=== PATIENT | male | born 1960 | race American Indian/Alaskan Native ===

== ENCOUNTER 2018-10-27 08:34 | Emergency (ER) | payer OTHER ==
[2018-10-27 08:49] VITALS: BP 152/110
[2018-10-27] MEDS ORDERED: BOOSTRIX IM ONE (10:17)
--- NOTE | 2018-10-27 10:17 | Emergency Department Report ---
ED General Adult HPI - General Chief complaint: Wound/Laceration Stated complaint: LFT FOREARM INJURY/PAIN Time Seen by Provider: 10/27/18 09:49 Source: family Mode of arrival: Ambulatory Limitations: No Limitations - History of Present Illness Initial comments: Patient presents to the emergency department with a chief complaint of a laceration to his left elbow. Patient states he was cut by a piece of metal at work. Patient denies hitting his head or any other trauma. Last tetanus shot was 9 years ago -: Sudden Location: upper extremity Radiation: non-radiation Severity scale (0 -10): 1 Quality: aching Consistency: constant Improves with: none Worsens with: none Associated Symptoms: denies other symptoms Treatments Prior to Arrival: none - Related Data Previous Rx's Medication Instructions Recorded Last Taken Type Amoxicillin [Trimox CAP] 500 mg PO Q8H #40 capsule 01/09/14 Unknown Rx Fluticasone Propionate [Flonase] 2 sprays NS QDAY #1 spray 01/09/14 Unknown Rx Loratadine [Claritin] 10 mg PO DAILY #30 tablet 01/09/14 Unknown Rx Promethazine /Codeine 5 ml PO Q6H PRN #120 udc 01/09/14 Unknown Rx [Phenergan/Codeine 6.25-10 mg/5 ml] predniSONE [Deltasone] 50 mg PO QDAY #5 tab 01/09/14 Unknown Rx DOXYCYCLINE Hyclate [Vibramycin 100 mg PO Q12HR #28 capsule 10/13/15 Unknown Rx CAP] Ibuprofen [Motrin 600 MG tab] 600 mg PO Q8H PRN #30 tablet 10/13/15 Unknown Rx Ibuprofen [Motrin] 800 mg PO Q8HR PRN #30 tablet 10/27/18 Unknown Rx Allergies Allergy/AdvReac Type Severity Reaction Status Date / Time No Known Allergies Allergy Verified 10/13/15 07:21 ED Review of Systems ROS: Stated complaint: LFT FOREARM INJURY/PAIN Other details as noted in HPI Constitutional: denies: chills, fever Eyes: denies: eye pain, eye discharge, vision change ENT: denies: ear pain, throat pain Respiratory: denies: cough, shortness of breath, wheezing Cardiovascular: denies: chest pain, palpitations Endocrine: no symptoms reported Gastrointestinal: denies: abdominal pain, nausea, diarrhea Genitourinary: denies: urgency, dysuria Musculoskeletal: denies: back pain, joint swelling, arthralgia Skin: denies: rash, lesions Neurological: denies: headache, weakness, paresthesias Psychiatric: denies: anxiety, depression Hematological/Lymphatic: denies: easy bleeding, easy bruising ED Past Medical Hx - Past Medical History Previous Medical History?: Yes Hx Hypertension: No Hx Diabetes: No Hx GERD: Yes - Surgical History Past Surgical History?: Yes Additional Surgical History: Right shoulder surg. Right foot surg - Social History Smoking Status: Current Every Day Smoker Substance Use Type: None - Medications Home Medications: Home Medications Medication Instructions Recorded Confirmed Last Taken Type Amoxicillin [Trimox CAP] 500 mg PO Q8H #40 capsule 01/09/14 Unknown Rx Fluticasone Propionate [Flonase] 2 sprays NS QDAY #1 spray 01/09/14 Unknown Rx Loratadine [Claritin] 10 mg PO DAILY #30 tablet 01/09/14 Unknown Rx Promethazine /Codeine 5 ml PO Q6H PRN #120 udc 01/09/14 Unknown Rx [Phenergan/Codeine 6.25-10 mg/5 ml] predniSONE [Deltasone] 50 mg PO QDAY #5 tab 01/09/14 Unknown Rx DOXYCYCLINE Hyclate [Vibramycin 100 mg PO Q12HR #28 capsule 10/13/15 Unknown Rx CAP] Ibuprofen [Motrin 600 MG tab] 600 mg PO Q8H PRN #30 tablet 10/13/15 Unknown Rx Ibuprofen [Motrin] 800 mg PO Q8HR PRN #30 tablet 10/27/18 Unknown Rx ED Physical Exam - General Limitations: No Limitations General appearance: alert, in no apparent distress - Head Head exam: Present: atraumatic, normocephalic - Eye Eye exam: Present: normal appearance - ENT ENT exam: Present: mucous membranes moist - Neck Neck exam: Present: normal inspection - Respiratory Respiratory exam: Present: normal lung sounds bilaterally. Absent: respiratory distress - Cardiovascular Cardiovascular Exam: Present: regular rate, normal rhythm. Absent: systolic murmur, diastolic murmur, rubs, gallop - Extremities Exam Extremities exam: Present: other (4cm laceration to lateral aspect of the left elbow) - Back Exam Back exam: Present: normal inspection - Neurological Exam Neurological exam: Present: alert, oriented X3 - Psychiatric Psychiatric exam: Present: normal affect, normal mood - Skin Skin exam: Present: warm, dry, normal color. Absent: rash ED Course Vital Signs 10/27/18 08:46 Temperature 97.5 F L Pulse Rate 84 Respiratory 16 Rate Blood Pressure 152/110 O2 Sat by Pulse 96 Oximetry - Laceration /Wound Repair Left Arm Wound Location: upper extremity Wound Length (cm): 4 Wound's Depth, Shape: superficial Wound Explored: clean Betadine Prep?: Yes Anesthesia: 1% Lidocaine Volume Anesthetic (ccs): 4 Wound Repaired With: sutures Suture Size/Type: 3:0 Number of Sutures: 4 Layer Closure?: No Sterile Dressing Applied?: Yes ED Medical Decision Making - Medical Decision Making discussed results with patient Critical care attestation.: If time is entered above; I have spent that time in minutes in the direct care of this critically ill patient, excluding procedure time. ED Disposition Clinical Impression: Laceration Disposition: DC-01 TO HOME OR SELFCARE Is pt being admited?: No Does the pt Need Aspirin: No Condition: Stable Instructions: Laceration (ED), Suture Care (ED) Additional Instructions: return if worse Referrals: PRIMARY CARE,MD [Primary Care Provider] - 3-5 Days [facility] [Provider Group] - 3-5 Days [facility] [Provider Group] - 3-5 Days Forms: Work/School Release Form(ED) Time of Disposition: 11:48
[2018-10-27] MEDS ORDERED: XYLOCAINE 1% 20 mL INFILTRATI ONE (10:32)
[2018-10-27] MEDS ORDERED: IBUPROFEN PO ONE (11:33)
== END 2018-10-27 11:59 | disposition home or self-care (01) ==
LOC: ED 08:34
DX: S51.012A Laceration without foreign body of left elbow, initial encounter (principal); K21.0 Gastro-esophageal reflux disease with esophagitis; F17.200 Nicotine dependence, unspecified, uncomplicated; Z79.899 Other long term (current) drug therapy; Z98.890 Other specified postprocedural states; W45.8XXA Other foreign body or object entering through skin, initial encounter; Y93.89 Activity, other specified; Y92.488 Other paved roadways as the place of occurrence of the external cause; Y99.8 Other external cause status
CPT/HCPCS: 90471; 90715; 99282

== ENCOUNTER 2020-12-07 10:37 | Day surgery (SDC) | payer OTHER ==
[~2020-12-07 10:37] MED LIST: ACETAMINOPHEN 500 MG TAB PO SCH; GABAPENTIN 300 MG CAP PO NR; LACTATED RINGERS 1,000 ML IV SCH; MIDAZOLAM 2 MG/2 ML INJ IV NR; SODIUM CHLORIDE 0.9% IRR 1,500 ML BOTTLE IR ONE
[2020-12-07] MEDS ORDERED: HEPARIN 5,000 UNIT/1 ML VIAL SUB-Q NR (12:30)
[2020-12-07 12:54] LABS: Blood Urea Nitrogen 10 mg/dL (9-20); Calcium 9.1 mg/dL (8.4-10.2); Hemolysis Index 22
[2020-12-07 13:06] LABS: BUN/Creatinine Ratio 17
[2020-12-07] MEDS ORDERED: BUPIVACAINE-EPINEPHRINE/PF 0.25%-1:200,000 (30 ML) VIAL INFILTRATI ONE (13:06)
[2020-12-07] MEDS ORDERED: HYDROmorphone 1 MG/1 ML INJ IV PRN (13:11)
[2020-12-07] MEDS ORDERED: oxyCODONE /ACETAMINOPHEN 5-325MG TAB PO PRN (13:11)
[2020-12-07] MEDS ORDERED: ONDANSETRON 4 MG/2 ML INJ IV PRN (13:11)
--- NOTE | 2020-12-07 13:11 | Anesthesia Consultation ---
Anesthesia Consult and Med Hx Date of service: 12/07/20 - Airway Anesthetic Teeth Evaluation: Poor ROM Head & Neck: Adequate Mental/Hyoid Distance: Adequate Mallampati Class: Class III Intubation Access Assessment: Possibly Difficult - Pulmonary Exam CTA: Yes - Cardiac Exam Cardiac Exam: RRR - Pre-Operative Health Status ASA Pre-Surgery Classification: ASA3 Proposed Anesthetic Plan: General - Pulmonary Hx Smoking: Yes (quit 2yrs ago) Hx Respiratory Symptoms: No COPD: Yes (no recent inhaler use; no hx excerbations) - Cardiovascular System Hx Hypertension: No Hx Heart Attack/AMI: No - Central Nervous System CVA: No Hx Back Pain: Yes - Endocrine Hx Renal Disease: No Hx Liver Disease: No Hx Insulin Dependent Diabetes: No Hx Non-Insulin Dependent Diabetes: No Hx Thyroid Disease: No - Additional Comments Anesthesia Medical History Comments: No hx anesthetic complications.
--- NOTE | 2020-12-07 13:11 | Anesthesia Day of Surgery ---
Anesthesia Day of Surgery - Day of Surgery Patient Examined: Yes Patient H&P Reviewed: Yes Patient is NPO: Yes
[2020-12-07] MEDS ORDERED: ONDANSETRON 4 MG/2 ML INJ ONE ×2 (13:18→14:55)
[2020-12-07] MEDS ORDERED: fentaNYL 100 MCG/2 ML INJ ONE (13:18)
[2020-12-07] MEDS ORDERED: LIDOCAINE MPF (2%) 20 MG/1 ML VIAL 5 ML ONE (13:18)
[2020-12-07] MEDS ORDERED: ROCURONIUM 50 MG/5 ML INJ IV ONE (13:18)
[2020-12-07] MEDS ORDERED: propofoL 200 MG/20 ML VIAL IV ONE (13:19)
[2020-12-07 13:22] LABS: Hematocrit 35.6 % (35.5-45.6); Hemoglobin 12.1 gm/dl (11.8-15.2); Mean Corpuscular HGB Conc 34 % (32-34); Mean Corpuscular Volume 79 fl (84-94); Platelet Count 233 K/mm3 (140-440); Red Blood Count 4.54 M/mm3 (3.65-5.03); Red Cell Distribution Width 14.2 % (13.2-15.2)
[2020-12-07] MEDS ORDERED: VANCOMYCIN/NS 1 GM/250 ML 1 GM/250 ML BAG IV NR (14:00)
[2020-12-07] MEDS ORDERED: ePHEDrine SULFATE 50 MG/1 ML INJ ONE (14:07)
[2020-12-07] MEDS ORDERED: BUPIVACAINE-EPINEPHRINE/PF 0.5%-1:200,000 (30 ML) VIAL INFILTRATI ONE ×2 (14:24)
[2020-12-07] MEDS ORDERED: SODIUM CHLORIDE 0.9% IRR 1,500 ML BOTTLE IR ONE (14:32)
[2020-12-07] MEDS ORDERED: KETOROLAC 30 MG/1 ML INJ ONE (14:55)
[2020-12-07] MEDS ORDERED: dexAMETHasone 20 MG/5 ML VIAL ONE (14:55)
[2020-12-07] MEDS ORDERED: GLYCOPYRROLATE 0.4 MG/2 ML INJ ONE (15:03)
[2020-12-07] MEDS ORDERED: NEOSTIGMINE 10MG/10 ML INJ MDV ONE (15:03)
--- NOTE | 2020-12-07 15:53 | Procedure Note ---
Date of procedure: 12/07/20 Pre-op diagnosis: RIH Post-op diagnosis: same (direct) Procedure: Open repair of RIH Description of procedure: Pt was placed supine on the OR table. General anesthesia was administered. Lower abdomen was prepped and draped. Skin and SQ tissue at the proposed suprapubic incision were infiltrated with 8 ml of 0.25% Marcaine with epinephrine. Skin was incised with a scalpel. SQ tissue was transected with the Bovie. External oblique aponeurosis and external inguinal ring were exposed. The aponeurosis was incised over the inguinal canal. Spermatic cord was dissected free posteriorly and a [place] drain placed about the cord. A moderate sized direct RIH was identified. Cord was skeletonized and no indirect RIH was identified. The conjoined tendon was approximated to the shelving portion of Poupart's ligament with multiple interrupted sutures of 0-Ethibond. Aponeurosis was approximated with a running suture of 3-0 Vicryl. Skin was approximated with a running subcuticular suture of 4-0 Monocryl. Skin glue was applied. Pt tolerated the procedure well. Pt was taken to PACU in stable condition. Anesthesia: other (LMA) Surgeon: MARK MURGUIA Estimated blood loss: minimal Pathology: none Condition: stable Disposition: PACU
[2020-12-07 16:23] VITALS: BP 148/90
--- NOTE | 2020-12-07 17:42 | Post Anesthesia Evaluation ---
- Post Anesthesia Evaluation Patient Participated: Yes Airway Patent: Yes Stable Respiratory Function: Yes Nausea/Vomiting: No Temp > 96.8F: Yes Pain Manageable: Yes Adequeate Hydration: Yes Anesthesia Complications: No
== END 2020-12-07 17:20 | disposition home or self-care (01) ==
LOC: OR 10:37
PROVIDERS: ATTEND Surgery
DX: K40.90 Unilateral inguinal hernia, without obstruction or gangrene, not specified as recurrent (principal); J44.9 Chronic obstructive pulmonary disease, unspecified; K21.9 Gastro-esophageal reflux disease without esophagitis; M19.90 Unspecified osteoarthritis, unspecified site; Z87.891 Personal history of nicotine dependence; Z79.899 Other long term (current) drug therapy; Z98.890 Other specified postprocedural states; Z88.1 Allergy status to other antibiotic agents
CPT/HCPCS: 36415; 49505; 80048; 85027; J1100; J1644; J1885; J2405; J2704; J2710; J3010; J3370; J7120

== ENCOUNTER 2021-02-20 09:49 | Emergency (ER) | payer OTHER ==
[2021-02-20 09:57] VITALS: BP 162/109
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
== END 2021-02-20 10:45 | disposition home or self-care (01) ==
LOC: ED 09:49
DX: S46.912A Strain of unspecified muscle, fascia and tendon at shoulder and upper arm level, left arm, initial encounter (principal); S39.012A Strain of muscle, fascia and tendon of lower back, initial encounter; M54.32 Sciatica, left side; K21.9 Gastro-esophageal reflux disease without esophagitis; J44.9 Chronic obstructive pulmonary disease, unspecified; Z87.891 Personal history of nicotine dependence; V49.49XA Driver injured in collision with other motor vehicles in traffic accident, initial encounter; X58.XXXA Exposure to other specified factors, initial encounter; Y93.89 Activity, other specified; Y92.89 Other specified places as the place of occurrence of the external cause; Y99.8 Other external cause status
CPT/HCPCS: 99281